=== PATIENT | female | born 1970 | race African-American/Black ===

== ENCOUNTER 2025-06-10 09:14 | Emergency (ER) | payer BC, MEDICAID ==
[~2025-06-10] VITALS: Ht 167.6 cm; Wt 61.0 kg
[2025-06-10 09:18] VITALS: BP 107/76; PULSE 78; RESP 18; TEMP 36.7; O2SAT 99
[2025-06-10] MEDS: ACETAMINOPHEN 325MG TABLET PO ONE (09:59)
== END 2025-06-10 11:18 | disposition left against medical advice (07) ==
LOC: ER 11:11
DX: S00.11XA Contusion of right eyelid and periocular area, initial encounter (principal); E11.9 Type 2 diabetes mellitus without complications; X58.XXXA Exposure to other specified factors, initial encounter; Y93.89 Activity, other specified; Y92.89 Other specified places as the place of occurrence of the external cause; Y99.8 Other external cause status
CPT/HCPCS: 99283